=== PATIENT | male | born 1975 | race African-American/Black ===

== ENCOUNTER 2017-01-22 14:13 | Emergency (ER) | payer MEDICAID, OTHER ==
[~2017-01-22] VITALS: Ht 185.4 cm; Wt 108.9 kg
[2017-01-22 14:37] VITALS: BP 126/74
== END 2017-01-22 14:49 | disposition home or self-care (01) ==
LOC: ER 14:13
DX: J45.909 Unspecified asthma, uncomplicated (principal); Z76.0 Encounter for issue of repeat prescription

== ENCOUNTER 2017-08-28 16:20 | Emergency (ER) | payer MEDICAID ==
[~2017-08-28] VITALS: Ht 185.4 cm; Wt 104.3 kg
[2017-08-28 19:26] VITALS: BP 139/94
== END 2017-08-28 20:10 | disposition home or self-care (01) ==
LOC: ER 16:24
DX: J45.909 Unspecified asthma, uncomplicated (principal); Z76.0 Encounter for issue of repeat prescription

== ENCOUNTER 2017-12-18 13:27 | Emergency (ER) | payer MEDICAID ==
[~2017-12-18] VITALS: Ht 190.5 cm; Wt 103.4 kg
[2017-12-18 13:54] VITALS: BP 135/86
== END 2017-12-18 14:58 | disposition home or self-care (01) ==
LOC: ER 13:27
DX: J45.909 Unspecified asthma, uncomplicated (principal); Z76.0 Encounter for issue of repeat prescription

== ENCOUNTER 2018-02-16 20:12 | Emergency (ER) | payer MEDICAID ==
[~2018-02-16] VITALS: Ht 185.4 cm; Wt 108.9 kg
[2018-02-16] MEDS ORDERED: ALBUTEROL SULF 2.5 MG/0.5ML(0.5%) NEB SOLN NEB ONE (20:45)
[2018-02-16] MEDS ORDERED: IPRATROPIUM BROM 0.5 MG/2.5ML INH SOL NEB ONE (20:45)
[2018-02-16 21:40] LABS: Albumin 3.5 g/dL (3.4-5.0); BUN/Creatinine Ratio 15.7; Bilirubin, Total 0.2 mg/dL (0.2-1.0); Calcium 8.4 mg/dL (8.5-10.1); Magnesium 2.6 mg/dL (1.6-2.6); Total Protein 7.1 g/dL (6.4-8.2)
[2018-02-16 22:01] LABS: Basophils # (auto) 0 uL; Basophils % (auto) 0.6 % (0.0-2.0); Eosinophils # (auto) 0.3 uL; Eosinophils % (auto) 4.3 % (0.0-7.0); Hematocrit 43.2 % (41.0-53.0); Hemoglobin 14.5 g/dL (13.5-17.5); Lymphocytes # (auto) 2.3 uL; Lymphocytes % (auto) 34.5 % (10.0-50.0); Mean Corpuscular Hemoglobin 32.7 pg (28.0-32.0); Mean Corpuscular Hgb Conc. 33.6 g/dL (32.0-36.0); Mean Corpuscular Volume 97.5 fL (80.0-100.0); Monocytes # (auto) 0.5 uL; Neutrophils # (auto) 3.6 uL; Neutrophils % (auto) 53.6 % (37.0-80.0); Nucleated Red Blood Cells % 0.1 %; Platelet Count (auto) 285 10^3/uL (140-450); Red Blood Cells 4.43 10^6/uL (4.5-5.90); Red Cell Distribution Width 14.4 % (11.8-14.3); White Blood Cell 6.7 10^3/uL (4.4-10.8)
[2018-02-17 01:16] VITALS: BP 133/84
[2018-02-17] MEDS ORDERED: predniSONE 20 MG TAB PO ONE ×2 (01:45)
[2018-02-17] MEDS ORDERED: ALBUTEROL SULF 2.5 MG/0.5ML(0.5%) NEB SOLN NEB ONE (01:45)
[2018-02-17] MEDS ORDERED: IPRATROPIUM BROM 0.5 MG/2.5ML INH SOL NEB ONE (01:45)
== END 2018-02-17 02:43 | disposition home or self-care (01) ==
LOC: ER 20:12
DX: J45.909 Unspecified asthma, uncomplicated (principal)
CPT/HCPCS: 36415; 80053; 83735; 85025; 94640; 99284; J7512

== ENCOUNTER 2018-03-19 11:08 | Emergency (ER) | payer MEDICAID, OTHER ==
[~2018-03-19] VITALS: Ht 185.4 cm; Wt 104.3 kg
[2018-03-19 11:21] VITALS: BP 136/87
== END 2018-03-19 12:39 | disposition home or self-care (01) ==
LOC: ER 11:08
DX: J45.909 Unspecified asthma, uncomplicated (principal); Z76.0 Encounter for issue of repeat prescription

== ENCOUNTER 2018-05-04 20:49 | Emergency (ER) | payer OTHER ==
[~2018-05-04] VITALS: Ht 185.4 cm; Wt 108.9 kg
[2018-05-04 21:14] VITALS: BP 153/94
== END 2018-05-04 21:46 | disposition home or self-care (01) ==
LOC: ER 20:49
DX: J45.909 Unspecified asthma, uncomplicated (principal); Z76.0 Encounter for issue of repeat prescription

== ENCOUNTER → 2018-08-17 | Emergency (ER) | payer OTHER | END | disposition left against medical advice (07) | LOC: ER 15:28 | DX: Z76.0 Encounter for issue of repeat prescription (principal); Z53.21 Procedure and treatment not carried out due to patient leaving prior to being seen by health care provider ==

== ENCOUNTER 2021-07-22 20:08 | Emergency (ER) | payer MEDICAID ==
[~2021-07-22] VITALS: Ht 185.4 cm; Wt 104.3 kg
[2021-07-22 21:30] VITALS: BP 120/73
== END 2021-07-22 21:47 | disposition home or self-care (01) ==
LOC: ER 20:09
DX: J45.909 Unspecified asthma, uncomplicated (principal); E66.9 Obesity, unspecified; Z68.34 Body mass index [BMI] 34.0-34.9, adult; Z76.0 Encounter for issue of repeat prescription

== ENCOUNTER 2021-09-11 17:57 | Emergency (ER) | payer MEDICAID ==
[~2021-09-11] VITALS: Ht 185.4 cm; Wt 97.5 kg
[2021-09-11] MEDS ORDERED: IPRATROPIUM BROM 0.5 MG/2.5ML INH SOL NEB ONE (18:00)
[2021-09-11] MEDS ORDERED: ALBUTEROL SULF 2.5 MG/0.5ML(0.5%) NEB SOLN NEB ONE (18:00)
[2021-09-11 23:55] VITALS: BP 140/83
== END 2021-09-12 00:01 | disposition home or self-care (01) ==
LOC: ER 18:05
DX: J45.901 Unspecified asthma with (acute) exacerbation (principal); Z76.0 Encounter for issue of repeat prescription
CPT/HCPCS: 94640; 99283; J7644

== ENCOUNTER 2021-12-02 21:00 | Emergency (ER) | payer MEDICAID ==
[~2021-12-02] VITALS: Ht 185.4 cm; Wt 104.3 kg
[2021-12-02 21:00] VITALS: BP 147/92
== END 2021-12-03 02:37 | disposition left against medical advice (07) ==
LOC: ER 21:01
DX: Z76.0 Encounter for issue of repeat prescription (principal); Z53.21 Procedure and treatment not carried out due to patient leaving prior to being seen by health care provider